=== PATIENT | male | born 1970 | race Caucasian/White ===

== ENCOUNTER 2016-12-31 20:37 | Observation (INO) | payer BC ==
[~2016-12-31] VITALS: Ht 170.2 cm; Wt 136.1 kg
--- NOTE | ~2016-12-31 | HP ---
History And Physical [id number] [facility] [place]. [address] NAME: CAROLE CHAUHAN : 70 STATUS : ADM Francis PAT#: [id number] AGE: 46 ADM/REG DATE : 12/31/16 MR#: [id number] REPORT SERV DATE: 01/01/17 DICTATED BY: REINA VILLA DATE: 01/01/17 REPORT STATUS : Draft TRANSCRIBED BY: MELONIE DATE: 01/01/17 DATE OF ADMISSION: 12/31/2016 CHIEF COMPLAINT: Elevated blood pressure. HISTORY OF PRESENT ILLNESS: A very pleasant, 46-year-old white gentleman with no known history of CAD, presents to our facility with complaints of elevated blood pressure. The patient states that he awoke on December 31 feeling dizzy and fatigued. He felt he may not have had a restful sleep. Around 11 a.m., his checked his blood pressure and was 160/100. He took outdated chlorthalidone 25 mg, but his blood pressure continued to arise. Later in the day, it was 180/100, so he came to the emergency room. He states his chlorthalidone was previously prescribed for his blood pressure, but he has not taken in greater than two years. The patient denies any chest pain, pressure, or tightness. No shortness of breath, nausea, diaphoresis, or belching. 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 He has no problems with exertional chest pain while on the job. 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 The patient denies any personal history of myocardial infarction, stroke, DVT, or pulmonary embolus. The patient recently treated for sinusitis and upper respiratory infection with antibiotics. No palpitations. Denies syncope. No PND, orthopnea. The patient reports that he was previously on chlorthalidone 25 mg daily, but discontinued 2 years ago most likely with following gastric sleeve and weight loss of 130 pounds. The patient also states that prior to that was on Lasix for lower extremity edema and a metoprolol for tachyarrhythmia, but now off chlorthalidone for greater than two years. PAST MEDICAL HISTORY: 1. Asthma. 2. Previous hypertension, off chlorthalidone for greater than two years. 3. BMI greater than 40. 4. Cholesterol per PCP. 5. Denies diabetes. 6. Smokeless tobacco use. PAST SURGICAL HISTORY: 1. Left knee surgery. 2. Gastric sleeve with 130-pound weight loss over two years, most recently regaining 30 pounds. 3. T and A. 4. Hernia repair. SOCIAL HISTORY: He is with four children. 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 He does not have a structured exercise routine. Quit smoking 10 years ago. Denied uses a smokeless tobacco one can every other day. Consumes 1 glass of bourbon daily. Denies illicits. History And Physical [address] [address] NAME: CAROLE CHAUHAN : 70 STATUS : ADM Francis PAT#: [id number] AGE: 46 ADM/REG DATE : 12/31/16 MR#: [id number] REPORT SERV DATE: 01/01/17 DICTATED BY: REINA VILLA DATE: 01/01/17 REPORT STATUS : Draft TRANSCRIBED BY: MELONIE DATE: 01/01/17 FAMILY HISTORY: No embolic events reported in first-degree relatives. REVIEW OF SYSTEMS: 14-point review of systems performed, significant for HPI. The patient reports usual home blood pressure of 130/60, otherwise complete review of systems obtained and negative. ALLERGIES: PENICILLIN, ANAPHYLAXIS. HOME MEDICINES: Albuterol p.r.n., aspirin 81 mg daily, recent Z-Asael use completed, diclofenac 75 mg daily p.r.n., Claritin 10 mg daily, multivitamin daily, Afrin spray p.r.n., AndroGel topical every 48 hours. PHYSICAL EXAMINATION: VITAL SIGNS: Bilateral blood pressures on arrival, right 175/86, left 172/92, this morning 162/97; pulse 71; respirations 20; temperature 97.8; O2 saturation 95% on room air. Height 5 feet 7 inches. Weight 300 pounds. BMI 47. GENERAL: Cooperative, in no apparent distress. HEENT: Pupils 2 mm, sclera nonicteric. Nares patent. Moist mucous membranes. No xanthelasma. NECK: Trachea midline, no thyromegaly. No JVD. No bruits. LYMPH: No cervical lymphadenopathy. No supraclavicular lymphadenopathy. RESPIRATORY: Unlabored respirations. Breath sounds clear bilaterally to posterior auscultation. No wheezes or rhonchi. CARDIOVASCULAR: Regular rate. No murmur, rub or gallop appreciated. Extremities without edema. Pulses 2+ bilaterally. ABDOMEN: Obese. Soft, nontender, nondistended, normal bowel sounds auscultated throughout. No organomegaly. SKIN: Warm, dry extremities. No pallor, or cyanosis. PSYCHIATRIC: Appropriate affect. Alert, oriented x3. LABORATORY DATA: Troponin less than 0.02 x3. Potassium 3.6, BUN 16, creatinine 0.96, glucose 105. Magnesium 2.3. WBC 8.3, hemoglobin 15.8, hematocrit 46.5, and platelet count 190,000. D-dimer 0.31. EKG, sinus rhythm. ASSESSMENT AND PLAN: 1. Elevated blood pressure without any symptoms of chest pain, pressure, or tightness and no exertional complaints described. The patient has been seen by Dr. Head on rounds, who agrees with discharging patient home with close PCP followup. We will reinstitute the previous prescription for chlorthalidone 25 mg daily, which could be increased to 50 daily. At followup with his PCP, the patient has been instructed to take blood pressure readings to his followup visit. No further cardiac testing warranted given the patient's presenting symptoms or lack thereof. 2. Smokeless tobacco use. Counseled regarding cessation. The patient verbalizes understanding and appears motivated to quit. 3. BMI greater than 40. Counseled regarding daily walking program. The patient reports he has regained 30 pounds since his gastric sleeve over this past year. Routine exercise would be recommended. History And Physical [address] [address] NAME: CAROLE CHAUHAN : 70 STATUS : ADM Francis PAT#: [id number] AGE: 46 ADM/REG DATE : 12/31/16 MR#: [id number] REPORT SERV DATE: 01/01/17 DICTATED BY: REINA VILLA DATE: 01/01/17 REPORT STATUS : Draft TRANSCRIBED BY: MELONIE DATE: 01/01/17 RADHA/MELONIE REYNA Echeverria, [employer]- / [id number] CC: REYNA Echeverria, [employer]- Terry Pagan M.D.
[~2016-12-31 20:37] MED LIST: ASMANEX INH; BYSTOLIC5 MG PO; CARASPUDL PO; HYGROTON 25 MG25 MG OR; LORTABLIQ PO; PRILOSEC40 MG PO
[2016-12-31 22:07] LABS: BASOPHILS 0.2 %; BASOPHILS ABSOLUTE 0.02 10/3/uL (0.0-0.16); EOSINOPHILS 2.9 %; EOSINOPHILS ABSOLUTE 0.24 10/3/uL (0.0-0.53); ER CBC TAT 0 Hrs 09 Mins; HEMATOCRIT 46.5 % (40.0-51.0); HEMOGLOBIN 15.8 g/dL (13.6-17.8); IMMATURE GRANULOCYTES 0.2 %; IMMATURE GRANULOCYTES ABSOLUTE 0.02 10/3/uL (0.0-0.11); LYMPHOCYTES 24.5 %; LYMPHOCYTES ABSOLUTE 2.04 10/3/uL (0.67-4.30); MEAN CORPUSCULAR HEMOGLOB 29.9 pg (26.0-34.0); MEAN PLATELET VOLUME 9.4 fL (9.2-13.0); MONOCYTES 6.6 %; MONOCYTES ABSOLUTE 0.55 10/3/uL (0.21-1.20); NEUTROPHILS 65.6 %; NEUTROPHILS ABSOLUTE 5.45 10/3/uL (2.02-8.40); PLATELET COUNT 190 10/3/uL (150-400); RBC DISTRIBUTION WIDTH 13.4 % (12.0-16.0); RED CELL COUNT 5.29 10/6/uL (4.7-6.1); WHITE BLOOD CELLS 8.3 10/3/uL (4.5-10.5)
[2016-12-31 22:08] LABS: MANUAL DIFF NO %; MEAN CORPUSCULAR VOLUME 87.9 fL (80-100)
[2016-12-31 22:15] LABS: PARTIAL THROMBO TIME 26.9 SEC (22.5-37.2)
[2016-12-31 22:18] LABS: D-DIMER QUANTITATIVE 0.31 ug/mLFEU (< 0.50)
[2016-12-31 22:25] LABS: BUN (BLOOD UREA NITROGEN) 16 MG/DL (6-23); CALCIUM, SERUM 9.6 MG/DL (8.5-10.4); CHEST PAIN PROFILE TAT 0 Hrs 27 Mins; CHLORIDE, SERUM 105 MMOL/L (96-112); CO2 (CARBON DIOXIDE) 29 MMOL/L (24-34); CREATININE 0.96 MG/DL (0.70-1.30); GFR AFRICAN AMERICAN 109 ML/MIN (>=60); GFR NON AFRICAN AMERICAN 94 ML/MIN (>=60); GLUCOSE, SERUM 105 MG/DL (60-99); POTASSIUM, SERUM 3.6 MMOL/L (3.5-5.3); SODIUM, SERUM 142 MMOL/L (135-148); TROPONIN I <0.02 NG/ML (<0.05)
[2016-12-31] MEDS ORDERED: ANDROGEL1.25 GM TOP (23:36)
[2016-12-31] MEDS ORDERED: Z-PAK PO (23:36)
[2016-12-31] MEDS ORDERED: VOLT75 PO (23:37)
[2016-12-31] MEDS ORDERED: PROAIR HFA PO (23:37)
[2016-12-31] MEDS ORDERED: CLARIT10 PO (23:37)
[2016-12-31] MEDS ORDERED: ASAB PO (23:37)
[2016-12-31] MEDS ORDERED: CENTRUM PO (23:37)
[2016-12-31] MEDS ORDERED: AFRIN15 NAS (23:38)
[2017-01-01] MEDS ORDERED: HYGROTON 25 MG25 MG PO (10:02)
== END 2017-01-01 11:05 | disposition home or self-care (01) ==
LOC: ER 20:37 → CDU1 23:21
PROVIDERS: Nurse Practitioner Acute Care
DX: I10 Essential (primary) hypertension (principal); J45.909 Unspecified asthma, uncomplicated; Z68.41 Body mass index [BMI] 40.0-44.9, adult; Z98.84 Bariatric surgery status; Z90.89 Acquired absence of other organs; Z87.891 Personal history of nicotine dependence; Z88.0 Allergy status to penicillin; Z88.8 Allergy status to other drugs, medicaments and biological substances; Z79.82 Long term (current) use of aspirin; Z79.899 Other long term (current) drug therapy; Z98.890 Other specified postprocedural states
CPT/HCPCS: 71010; 80048; 83735; 84484; 85025; 85379; 85610; 85730; 93005; 99285; A9270-GY; G0378